=== PATIENT | male | born 1975 | race Caucasian/White ===

== ENCOUNTER 2021-01-19 15:50 | Inpatient (IN) | payer OTHER ==
[~2021-01-19] VITALS: Ht 170.2 cm; Wt 58.1 kg
[2021-01-19 16:08] VITALS: BP 163/112
[2021-01-19 17:53] LABS: ABSOLUTE BASOPHILS 0.1 thou/uL (0.0-0.2); ABSOLUTE EOSINOPHILS 0.5 thou/uL (0.0-0.7); ABSOLUTE LYMPHOCYTES 1.6 thou/uL (0.8-5.3); ABSOLUTE MONOCYTES 0.9 thou/uL (0.0-1.2); ABSOLUTE NEUTROPHILS 9.3 thou/uL (1.6-8.1); BASOPHILS 1.1 %; EOSINOPHILS 4.1 %; HEMATOCRIT 41.9 % (42.0-52.0); HEMOGLOBIN 14.2 gm/dL (14.0-18.0); LYMPHOCYTES 12.6 %; MCH 31.5 pg (26.0-34.0); MCHC 33.9 g/dL (28.0-37.0); MCV 93.1 fL (80.0-100.0); MONOCYTES 7.2 %; MPV 7.9 fl. (7.2-11.1); NUCLEATED RBCS 0 /100WBC; PLATELET COUNT* 330 thou/uL (150-400); RBC 4.51 mil/uL (4.50-6.00); RDW-CV 13.3 % (10.5-14.5); WBC 12.4 thou/uL (4.0-11.0)
[2021-01-19 18:07] LABS: CALCIUM 8.3 mg/dL (8.5-10.1); CREATININE 1.1 mg/dL (0.6-1.3); POTASSIUM 4.4 mmol/L (3.5-5.1)
[2021-01-19 18:13] LABS: TOTAL BILIRUBIN 0.1 mg/dL (<0.1-1.0); TOTAL PROTEIN 6.3 g/dL (6.4-8.2)
[2021-01-19 21:17] VITALS: BP 161/99
[2021-01-19 21:45] VITALS: BP 150/90
[2021-01-20 08:32] VITALS: BP 161/93
[2021-01-20 16:20] VITALS: BP 119/64
[2021-01-20 20:00] VITALS: BP 115/72
[2021-01-21 04:09] LABS: HEMATOCRIT 39.5 % (42.0-52.0); HEMOGLOBIN 13.4 gm/dL (14.0-18.0); MCH 31.4 pg (26.0-34.0); MCHC 33.9 g/dL (28.0-37.0); MCV 92.6 fL (80.0-100.0); MPV 7.7 fl. (7.2-11.1); RBC 4.27 mil/uL (4.50-6.00); RDW-CV 13.1 % (10.5-14.5); WBC 10.2 thou/uL (4.0-11.0)
[2021-01-21 04:22] LABS: CALCIUM 8.2 mg/dL (8.5-10.1); CREATININE 0.8 mg/dL (0.6-1.3); POTASSIUM 4.1 mmol/L (3.5-5.1)
[2021-01-21 08:15] VITALS: BP 152/89
[2021-01-21 16:56] VITALS: BP 142/79
[2021-01-21 20:00] VITALS: BP 150/88
[2021-01-21 23:06] LABS: GLYCOHEMOGLOBIN (HGB A1C) 6.2 % (4.8-5.6)
[2021-01-22 06:08] LABS: HEMATOCRIT 42.4 % (42.0-52.0); HEMOGLOBIN 14.7 gm/dL (14.0-18.0); MCH 31.6 pg (26.0-34.0); MCHC 34.6 g/dL (28.0-37.0); MCV 91.3 fL (80.0-100.0); MPV 7.8 fl. (7.2-11.1); RBC 4.64 mil/uL (4.50-6.00); RDW-CV 13.4 % (10.5-14.5); WBC 9.2 thou/uL (4.0-11.0)
[2021-01-22 06:12] LABS: CALCIUM 8.7 mg/dL (8.5-10.1); CREATININE 0.9 mg/dL (0.6-1.3); POTASSIUM 4.1 mmol/L (3.5-5.1)
[2021-01-22 07:45] VITALS: BP 150/97
[2021-01-22 15:31] VITALS: BP 134/84
[2021-01-22 19:30] VITALS: BP 133/92
[2021-01-23 05:59] LABS: CALCIUM 8.8 mg/dL (8.5-10.1); CREATININE 0.9 mg/dL (0.6-1.3); POTASSIUM 4.2 mmol/L (3.5-5.1)
[2021-01-23 06:05] LABS: HEMOGLOBIN 14.4 gm/dL (14.0-18.0); MCH 31.3 pg (26.0-34.0); MCHC 34.2 g/dL (28.0-37.0); MCV 91.4 fL (80.0-100.0); MPV 7.7 fl. (7.2-11.1); RBC 4.6 mil/uL (4.50-6.00); RDW-CV 13.1 % (10.5-14.5)
[2021-01-23] MEDS ORDERED: MUPIROCIN22 GM TOP (07:45)
[2021-01-23 09:00] VITALS: BP 150/93
[2021-01-23 16:00] VITALS: BP 130/75
[2021-01-23 21:40] VITALS: BP 157/80
[2021-01-24] MEDS ORDERED: CIPRO500 M1 PO (08:39)
[2021-01-24] MEDS ORDERED: HYDROCODON-ACE1 EAC7 PO (08:39)
[2021-01-24 09:00] VITALS: BP 160/94
[2021-01-24 13:46] VITALS: BP 160/94
[2021-01-24 14:01] VITALS: BP 160/94
== END 2021-01-24 15:00 | disposition home or self-care (01) | DRG 603 ==
LOC: M.ERS 15:50 → M.TBA-ER 18:35 → M.3W 22:40
PROVIDERS: Family Medicine; Nurse Practitioner Family; Surgery; ADMIT Internal Medicine; ATTEND Internal Medicine
DX: L03.116 Cellulitis of left lower limb (principal); L97.929 Non-pressure chronic ulcer of unspecified part of left lower leg with unspecified severity; L51.1 Stevens-Johnson syndrome; I10 Essential (primary) hypertension; D72.829 Elevated white blood cell count, unspecified; R73.03 Prediabetes; T44.5X5A Adverse effect of predominantly beta-adrenoreceptor agonists, initial encounter; Z20.822 Contact with and (suspected) exposure to COVID-19; Y92.89 Other specified places as the place of occurrence of the external cause; Z79.899 Other long term (current) drug therapy; Z23 Encounter for immunization